=== PATIENT | female | born 1990 | race American Indian/Alaskan Native ===

== ENCOUNTER 2017-05-06 15:48 | Outpatient (CLI) | payer MEDICAID ==
[2017-05-06] MEDS ORDERED: ZOFRAN IV ONE (17:00)
[2017-05-06] MEDS ORDERED: LACTATED RINGERS 500 ML IV ONE (17:00)
[2017-05-06] MEDS ORDERED: LACTATED RINGERS 1,000 ML IV SCH (17:00)
[2017-05-06] MEDS ORDERED: ZITHROMAX 500 MG in NACL 0.9% 250ML 250 ML IV SCH (18:00)
== END 2017-05-06 19:35 | disposition home or self-care (01) ==
LOC: TRG 15:48
PROVIDERS: ATTEND Obstetrics & Gynecology
DX: O47.03 False labor before 37 completed weeks of gestation, third trimester (principal); Z3A.36 36 weeks gestation of pregnancy
CPT/HCPCS: 59025; 96360; 96365; J0456; J2405; J7050; J7120

== ENCOUNTER 2017-05-25 09:14 | Inpatient (IN) | payer MEDICAID ==
--- NOTE | 2017-05-24 16:05 | History and Physical Report ---
History of Present Illness Date of examination: 05/21/17 Chief complaint: Repeat Ceserean delivery History of present illness: Past History : 3 Term Births: 1 Living Children: 1 Para: 1 # 1 Delivery date: 01/03/2012 Weeks Gestation: 40 Delivery type: Anesthesia type: epidural Delivery location: [facility] Sex: female weight: 5.38 Comments: bradycardia # 2 Delivery date: 2015 Weeks Gestation: 7 Delivery type: SAB Comments: denies complications Risk Factors: Smoked Tobacco Use: Current every day smoker Cigarettes: Yes -- 3-5cigs a week pack(s) per day,Smokeless Tobacco Use: Never Counseled to quit/cut down: yes Passive smoke exposure: no Drug use: no HIV high-risk behavior: low risk Caffeine use: 1 drinks per day Alcohol use: no Seatbelt use: preg-financial services counselor % Dietary Counseling: pn yes Past Medical History: Reviewed history from 01/11/2012 and no changes required: none Past Surgical History: Reviewed history from 03/09/2013 and no changes required: Past Medical History Abnormal PAP: negative JENY Exposure: negative Infertility: negative Uterine Anomaly: negative Uterine Surgery (not C/S): negative Other Gynecologic Problems: negative Social Hx: negative, single Infection History Hx of STD: none HIV Risk Eval: low risk Hepatitis B Risk Eval: low risk Personal hx. of genital herpes: no Partner hx. of genital herpes: no Rash, Viral, or Febrile illness since last LMP? no Varicella/Chicken Pox Status: Previous Disease TB Risk: no Genetic History Congenital Heart Defect: Mom: no Dad: unknown Jesus Disease: Mom: no Dad: unknown Thalassemia Mom: no Dad: unknown Neural Tube Defect Mom: no Dad: unknown Down's Syndrome Mom: no Dad: unknown Gerry-Sachs Mom: no Dad: unknown Sickle Cell Disease/Trait Mom: no Dad: unknown Hemophilia Mom: no Dad: unknown Muscular Dystrophy Mom: no Dad: unknown Cystic Fibrosis Mom: no Dad: unknown [place] Chorea Mom: no Dad: unknown Mental Retardation Mom: no Dad: unknown Fragile X Mom: no Dad: unknown Other Genetic/Chromosomal Disorder Mom: no Dad: unknown Child w/other defect Mom: no Dad: unknown Enviromental Exposures Xray Exposure: no Medication, drug, or alcohol use since LMP: no Chemical/Other Exposure: no Exposure to Cat Liter: no Hx of Parvovirus (Fifth Disease): no Occupational Exposure to Children: none Current Allergies: No known allergies Physical Exam General appearance: well nourished, healthy appearing, no distress Chest/Lungs: respiratory effort normal, lungs clear to auscultation Cardiovascular: normal rate and rhythm Abdomen/GI: soft, nontender Cervix: Dilation (cm): 0 Effacement: 0% Station: -3 Position: posterior Consistency: soft Past History - Obstetrical History Expected Date of Delivery: 06/01/17 Actual Gestation: 38 Week(s) 6 Day(s) Medications and Allergies Allergies Allergy/AdvReac Type Severity Reaction Status Date / Time No Known Allergies Allergy Unverified 05/06/17 16:11 Active Meds: Active Medications Citric Acid/Sodium Citrate (Bicitra) 30 ml PO ONCE ONE Stop: 05/25/17 07:01 Famotidine (Pepcid) 20 mg IV ONCE ONE Stop: 05/25/17 07:01 Cefazolin Sodium (Ancef/Sterile Water 2 Gm/20 Ml) 2 gm in 20 mls @ 80 mls/hr IV PREOP NR PRN Reason: Protocol Lactated Ringer's (Lactated Ringers) 1,000 mls @ 2,250 mls/hr IV PREOP LUIS M Stop: 05/26/17 07:27 Oxytocin/Sodium Chloride (Pitocin/Ns 20 Unit/1000ml Drip) 20 units in 1,000 mls @ 0 mls/hr IV TITR LUIS M PRN Reason: As Directed Metoclopramide HCl (Reglan) 10 mg IV ONCE ONE Stop: 05/25/17 07:01 Results All other labs normal. Assessment and Plan - Patient Problems (1) 39 weeks gestation of Status: Acute (2) Maternal care for scar from previous delivery Status: Acute Qualifiers: Previous delivery type: P Plan to address problem: Consent reviewed and signed . The risks and alternatives for this surgery were reviewed with the patient. She was informed of possible bleeding, infection, injury to bowel, bladder, ureters or other adjacent organs. The patient was instructed/informed the following: The normal length of hospital stay for this procedure. Nothing to eat or drink after midnight the evening prior to surgery. Pre-op instruction sheets given. Wound care instructions given. Infection precautions reviewed, patient to call for any signs or symptoms of infection. The usual discomforts associated with this procedure were detailed. Proper use of pain medicines was reviewed. Patient was given ample opportunity to have all her questions answered before signing informed consent. (3) Chlamydia infection affecting in third trimester Status: Acute Plan to address problem: Treated 05/05/2017,OSCAR ordered on admission
[~2017-05-25 09:14] MED LIST: ANCEF/STERILE WATER 2 GM/20 ML 2 GM/20 ML SYRINGE IV NR; BICITRA PO SCH; PEPCID IV SCH; PITOCin/NS 20 UNIT/1000ML DRIP 20 UNITS/1,000 ML BAG IV SCH; REGLAN IV SCH
[2017-05-25] MEDS: LACTATED RINGERS 1,000 ML IV SCH ×3 (09:45→11:05)
[2017-05-25 10:26] LABS: Hematocrit 33.5 % (30.3-42.9); Mean Corpuscular HGB Conc 33 % (30-34); Mean Corpuscular Hemoglobin 29 pg (28-32); Mean Corpuscular Volume 88 fl (79-97); Platelet Count 124 K/mm3 (140-440); Red Blood Count 3.82 M/mm3 (3.65-5.03); Red Cell Distribution Width 13.2 % (13.2-15.2); White Blood Count 8.7 K/mm3 (4.5-11.0)
--- NOTE | 2017-05-25 10:28 | Anesthesia Day of Surgery ---
Anesthesia Day of Surgery - Day of Surgery Patient Examined: Yes Patient H&P Reviewed: Yes Patient is NPO: Yes
--- NOTE | 2017-05-25 10:28 | Anesthesia Consultation ---
Anesthesia Consult and Med Hx Date of service: 05/25/17 - Airway Anesthetic Teeth Evaluation: Good ROM Head & Neck: Adequate Mental/Hyoid Distance: Adequate Mallampati Class: Class II Intubation Access Assessment: Probably Good - Pre-Operative Health Status ASA Pre-Surgery Classification: ASA2 Proposed Anesthetic Plan: Epidural, Spinal - Pulmonary Hx Asthma: No COPD: No Hx Pneumonia: No - Cardiovascular System Hx Hypertension: No - Central Nervous System Hx Seizures: No Hx Psychiatric Problems: No - Endocrine Hx Renal Disease: No Hx End Stage Renal Disease: No Hx Hypothyroidism: No Hx Hyperthyroidism: No - Hematic Hx Anemia: No Hx Sickle Cell Disease: No - Other Systems Hx Alcohol Use: No
[2017-05-25] MEDS ORDERED: ZOFRAN IV PRN ×2 (10:29→13:43)
[2017-05-25] MEDS ORDERED: DILAUDID IV PRN (10:29)
[2017-05-25] MEDS ORDERED: NARCAN 0.4 MG/1 ML IV PRN ×2 (10:29→13:43)
[2017-05-25] MEDS ORDERED: BENADRYL IV PRN (10:29)
[2017-05-25] MEDS ORDERED: SODIUM CHLORIDE FLUSH SYRINGE 10 ML IV NR (11:00)
[2017-05-25] MEDS ORDERED: MORPHINE ONE (11:14)
[2017-05-25] MEDS ORDERED: NACL 0.9% IR ONE (11:15)
[2017-05-25] MEDS ORDERED: WATER FOR IRRIG STERILE IR ONE (11:15)
[2017-05-25] MEDS ORDERED: ZOFRAN ONE (11:55)
[2017-05-25] MEDS ORDERED: NEO SYNEPHRINE/NS Syringe(OR USE) IV ONE (12:00)
[2017-05-25] MEDS ORDERED: TORADOL IV PRN ×2 (12:00→15:00)
[2017-05-25] MEDS ORDERED: PITOCin/NS 20 UNIT/1000ML DRIP 20 UNITS/1,000 ML BAG IV SCH (13:43)
[2017-05-25] MEDS ORDERED: TYLENOL PR PRN (13:43)
[2017-05-25] MEDS ORDERED: PHENERGAN PR PRN (13:43)
[2017-05-25] MEDS ORDERED: TUCKS PAD TP PRN (13:43)
[2017-05-25] MEDS ORDERED: MILK OF MAGNESIA PO PRN (13:43)
[2017-05-25] MEDS ORDERED: TYLENOL PO PRN (13:43)
[2017-05-25] MEDS ORDERED: SODIUM CHLORIDE FLUSH SYRINGE 10 ML IV SCH (13:43)
[2017-05-25] MEDS ORDERED: LANSINOH TP PRN (13:43)
[2017-05-25] MEDS ORDERED: D5LR 1,000 ML IV SCH (14:00)
[2017-05-25] MEDS ORDERED: MORPHINE IV PRN ×2 (14:10)
--- NOTE | 2017-05-25 15:54 | Post Operative Note ---
Pre-op diagnosis: Prev c/s Post-op diagnosis: same Findings: liveborn female infant Anesthesia: regional Surgeon: LOGAN HOPKINS Estimated blood loss: other (600mL) Pathology: none Specimen disposition: discarded Condition: stable Disposition: PACU
[2017-05-25] MEDS: ANCEF/NS 1 GM/50 ML 1 GM/50 ML BAG IV SCH (17:22)
[2017-05-26] MEDS: BENADRYL PO PRN ×3 (00:09→16:13)
--- NOTE | 2017-05-26 00:29 | Operative Report ---
PREOPERATIVE DIAGNOSES: Intrauterine at 39 weeks, previous section, desires repeat section. PREOPERATIVE DIAGNOSES: Intrauterine at 39 weeks, previous section, desires repeat section. PROCEDURE: Repeat low transverse section. SURGEON: Nancy Pedro M.D. ANESTHESIA: Spinal. COMPLICATIONS: None. ESTIMATED BLOOD LOSS: 600 mL. ANESTHESIOLOGIST: Dr. Darrell Garcia. PROCEDURE: After risks, benefits, complications, consequences, and alternatives for the procedure were discussed with the patient, she reports to understand and desired to proceed. She was taken to the OR where spinal anesthesia was placed. She was placed in a left lateral tilt position and prepped and draped in usual sterile fashion. After a timeout was performed and an appropriate level of anesthesia was noted, a Pfannenstiel incision was made and extended to fascia, which was incised and extended to lateral direction. The overlying fascia was sharply dissected away from the underlying rectus muscles in the superior inferior direction. Midline was entered bluntly. The vesicouterine fold was incised with blunt dissection. The bladder flap was created. A transverse incision was made in the lower uterine segment and extended in the superolateral direction via fractionation. Clear fluid was noted. Infant was delivered from the cephalic position with spontaneous cry and excellent tone. Mouth and nose were bulb suctioned. Cord was doubly clamped and cut. Infant was given to the resuscitation team present. Placenta was manually extracted. The uterus was exteriorized and cleaned of any further products of conception and placental tissue. The uterine incision was reapproximated using 0 Vicryl in a running and locking stitch, followed by another stitch of 0 Vicryl in a [id number] fashion for hemostasis. Grossly normal tubes and ovaries were noted. Once hemostasis was noted, the uterus was allowed back into the pelvic cavity. The pelvis was irrigated with warm normal saline. Tisseel was applied to the incision for hemostasis followed by Interceed to prevent adhesions. Once hemostasis was noted, attention was turned to the rectus muscles. Once hemostasis was noted, the fascia was reapproximated using 0 Vicryl in a simple running stitch. Once hemostasis was noted, the skin incision was reapproximated using 0 Vicryl and a Richy needle in a subcuticular manner. The patient tolerated the procedure well, was taken to recovery room in stable condition. JOB# [id number] LDR/NTS
[2017-05-26 01:18] LABS: Hemoglobin 9.5 gm/dl (10.1-14.3); Mean Corpuscular HGB Conc 33 % (30-34); Mean Corpuscular Hemoglobin 29 pg (28-32); Mean Corpuscular Volume 88 fl (79-97); Platelet Count 105 K/mm3 (140-440); Red Blood Count 3.31 M/mm3 (3.65-5.03); Red Cell Distribution Width 13.1 % (13.2-15.2); White Blood Count 11.2 K/mm3 (4.5-11.0)
[2017-05-26] MEDS: ANCEF/NS 1 GM/50 ML 1 GM/50 ML BAG IV SCH (01:41)
[2017-05-26] MEDS: MOTRIN PO PRN ×2 (04:49→18:26)
[2017-05-26] MEDS ORDERED: BOOSTRIX IM ONE (06:00)
--- NOTE | 2017-05-26 06:21 | Progress Note ---
Assessment and Plan - Patient Problems (1) delivery delivered Onset Date: ~05/26/17 Current Visit: Yes Status: Acute Plan to address problem: Pt w/o voiced c/o VSS FF below umb Lochia small Dressing D&I H&H 05/28 drop r/t blood loss from surgery. Pt is asymptomatic Doing well s/p c/s P: continue pathway Advance diet and activity. Subjective - Subjective Date of service: 05/26/17 (pt resting w/o complaint) Principal diagnosis: Day # 1 s/p section Patient reports: voiding normally, pain well controlled, ambulating normally : doing well Objective - Vital Signs Latest vital signs: Vital Signs Temp Pulse Resp BP BP Pulse Ox 05/26/17 04:25 98.6 F 66 16 121/68 05/26/17 00:30 98.6 F 64 16 101/68 05/25/17 21:00 98.6 F 66 16 111/77 05/25/17 17:37 98.7 F 18 100/63 05/25/17 13:35 97.4 F L 90 18 106/57 05/25/17 13:10 72 9 L 104/59 05/25/17 13:00 76 12 109/56 99 05/25/17 12:50 74 13 103/60 100 05/25/17 12:40 76 15 103/63 100 05/25/17 12:30 76 16 105/58 100 05/25/17 12:20 77 11 L 105/60 100 05/25/17 12:18 80 12 109/64 100 05/25/17 12:16 97.6 F 76 16 109/64 100 05/25/17 10:44 89 97 05/25/17 10:43 82 97 05/25/17 10:42 78 99 05/25/17 10:41 83 99 05/25/17 10:40 81 99 05/25/17 10:39 79 99 05/25/17 10:38 80 99 05/25/17 10:37 79 99 05/25/17 10:36 80 99 05/25/17 10:35 74 99 05/25/17 10:34 75 99 05/25/17 10:33 79 99 05/25/17 10:32 79 99 05/25/17 10:31 73 97 05/25/17 10:26 98.2 F 75 16 108/75 99 05/25/17 10:25 69 108/75 Intake and Output 05/25/17 05/25/17 05/26/17 14:59 22:59 06:59 Intake Total 3575 600 1050 Output Total 300 600 Balance 3275 600 450 Intake: IV 3575 50 ANCEF/NS 1 GM/50 ML 1 gm 50 In 50 ml @ 100 mls/hr IV Q8H LUIS M Rx#:[id number] Lactated Ringers 1,000 ml 1825 @ 2250 mls/hr IV PREOP LUIS M Rx#:[id number] Oral 250 450 Intake, Free Water 300 600 Output: Urine 300 600 Void 600 Other: Total, Intake Amount 250 200 Total, Output Amount 600 # Voids Void 1 Weight 125 lb Estimated Blood Loss 600 Patient Weight 05/26/17 06:59 Weight 125 lb - Exam Breasts: Present: normal Cardiovascular: Present: Regular rate Lungs: Present: Normal air movement Abdomen: Present: normal appearance, soft, normal bowel sounds Uterus: Present: normal, fundal height below umbilicus Extremities: Present: normal Deep Tendon Reflex Grade: Normal +2 Incision: Present: normal, dry, intact, dressed (to be removed this AM) - Labs Labs: Abnormal lab results 05/25/17 05/26/17 Range/Units 09:30 01:08 WBC 11.2 H (4.5-11.0) K/mm3 RBC 3.31 L (3.65-5.03) M/mm3 Hgb 9.5 L (10.1-14.3) gm/dl Hct 29.0 L (30.3-42.9) % RDW 13.1 L (13.2-15.2) % Plt Count 124 L 105 L (140-440) K/mm3
--- NOTE | 2017-05-26 10:25 | Progress Note ---
Subjective Date of service: 05/26/17 Principal diagnosis: Day # 1 s/p section Interval history: 1st POD after Patient is in the bed, comfortable. Pain is well controlled. Ambulated well. No residual neurological deficit. Pruritus is mostly under control. No anesthesia complications Objective - Constitutional Vitals: Vital Signs - 12hr 05/26/17 05/26/17 05/26/17 00:30 04:25 08:23 Temperature 98.6 F 98.6 F 98.5 F Pulse Rate 64 66 69 Respiratory 16 16 18 Rate Blood Pressure 103/40 Blood Pressure 101/68 121/68 [Right] O2 Sat by Pulse 100 Oximetry - Labs CBC & Chem 7: 05/26/17 01:08 Labs: Abnormal lab results 05/25/17 05/26/17 Range/Units 09:30 01:08 WBC 11.2 H (4.5-11.0) K/mm3 RBC 3.31 L (3.65-5.03) M/mm3 Hgb 9.5 L (10.1-14.3) gm/dl Hct 29.0 L (30.3-42.9) % RDW 13.1 L (13.2-15.2) % Plt Count 124 L 105 L (140-440) K/mm3
[2017-05-26] MEDS: PERCOCET 5/325 PO PRN ×2 (10:43→20:23)
[2017-05-26] MEDS ORDERED: Fluarix Quad 2017-2018(36 MOS+) IM ONE (12:00)
[2017-05-26] MEDS: MYLICON PO PRN (20:21)
[2017-05-27] MEDS: MYLICON PO PRN (05:53)
[2017-05-27] MEDS: PERCOCET 5/325 PO PRN ×2 (05:55→10:58)
--- NOTE | 2017-05-27 06:43 | Discharge Summary ---
Providers - Providers Date of Admission: 05/25/17 09:14 Date of discharge: 05/27/17 (desires d/c) Attending physician: LOGAN HOPKINS 05/25/17 13:43 Consult to Telecommunicator [CONS] Routine Reason For Exam: Primary care physician: LOGAN HOPKINS Hospitalization Reason for admission: section Delivery: Procedure: repeat low transverse Episiotomy: none Laceration: none Incision: normal, dry, intact Other procedures: none complications: none Discharge diagnosis: IUP at term delivered [place] baby: female Hospital course: uncomplicated repeat section with tubal Pt resting no c/o voiced Agrees with d/c today VSS FF below umb Lochia small Incision D&I Asymptomatic anemia Doing well s/p c./s P: d/c today with instructions RX given @ d/c RTO 1 week Condition at discharge: Good Disposition: DC-01 TO HOME OR SELFCARE - Discharge Diagnoses (1) delivery delivered Status: Acute Comment: rto 1 week postop care Plan - Discharge Medications Prescriptions: Ibuprofen [Motrin 800 MG tab] 800 mg PO TID PRN #30 tablet PRN Reason: Pain oxyCODONE /ACETAMINOPHEN [Percocet 5/325 mg] 1 - 2 tab PO Q4HR PRN #30 tablet PRN Reason: Pain - Provider Discharge Summary Activity: routine, no sex for 6 weeks, no heavy lifting 4 weeks, no strenuous exercise Diet: routine Instructions: routine Additional instructions: [] Smoking cessation referral if applicable(refer to patient education folder for contact #) [] Refer to [facility] Booklet Call your doctor immediately for: * Fever > 100.5 * Heavy vaginal bleeding ( >1 pad per hour) * Severe persistent headache * Shortness of breath * Reddened, hot, painful area to leg or breast * Drainage or odor from incision. * Keep incision clean and dry at all times and follow doctor's instructions regarding bathing/showering - Follow up plan Follow up: LOGAN HOPKINS MD [Primary Care Provider] - 7 Days (Congratulations! Please call [phone] to schedule your postoperative visit one week. Take medications as prescribed. Call with concerns.)
[2017-05-27 16:15] VITALS: BP 97/54
[2017-05-27] MEDS: MOTRIN PO PRN (16:47)
== END 2017-05-27 17:10 | disposition home or self-care (01) | DRG 765 ==
LOC: APU 09:14 → OB 13:34
PROVIDERS: ADMIT Obstetrics & Gynecology; ATTEND Obstetrics & Gynecology
PROC: 10D00Z1 Extraction of Products of Conception, Low, Open Approach (ICD-10-PCS; principal; 2017-05-25)
PROC: 3E0234Z Introduction of Serum, Toxoid and Vaccine into Muscle, Percutaneous Approach (ICD-10-PCS; 2017-05-26)
DX: O34.211 Maternal care for low transverse scar from previous cesarean delivery (principal); O98.82 Other maternal infectious and parasitic diseases complicating childbirth; D62 Acute posthemorrhagic anemia; Z3A.39 39 weeks gestation of pregnancy; Z37.0 Single live birth; Z23 Encounter for immunization; O99.334 Smoking (tobacco) complicating childbirth
CPT/HCPCS: 36415; 85027; 86592; 86850; 86900; 86901; 87591; 90686; 99211; A6250; C1765; C9250; G0463; J0690; J1885; J2270; J2370; J2405; J2590; J2765; J7120; J7121